=== PATIENT | female | born 1945 | race Caucasian/White ===

== ENCOUNTER 2017-09-03 20:47 | Emergency (ER) | payer MEDICARE, BC ==
[~2017-09-03] VITALS: Ht 167.6 cm; Wt 49.4 kg
[~2017-09-03 20:47] MED LIST: AMLODIPINE BES2.5 MG PO; ARIMIDEX1 MG PO; BENICAR20 MG PO; DICYCLOMINE HCL20 MG PO; PANTOPRAZOLE SO40 MG PO; SINGULAIR10 MG PO
[2017-09-03] MEDS ORDERED: ONDANSETRON HCL INJ 2 MG/ML VIAL IV STA (23:03)
[2017-09-03] MEDS ORDERED: SODIUM CHLORIDE 0.9% 1000ML 1,000 ML IV ONE (23:15)
[2017-09-03 23:51] LABS: BASOPHILS % 0.8 % (0.0-1.0); EOSINOPHILS % 0.5 % (0.0-6.0); HEMATOCRIT 35.8 % (34.2-44.1); HEMOGLOBIN 12.3 g/dL (12.0-16.0); LYMPHOCYTES # (AUTO) 0.9 (1.0-3.2); LYMPHOCYTES % 22.5 % (18.0-39.1); MEAN CORPUSCULAR HEMOGLOBIN 39.5 pg (28-32); MEAN CORPUSCULAR HGB CONC 34.4 g/dL (31-35); MEAN CORPUSCULAR VOLUME 115.1 fL (81-99); MONOCYTES # (AUTO) 0.3 (0.2-0.8); MONOCYTES % 7.4 % (4.4-11.3); NEUTROPHILS # (AUTO) 2.7 (2.1-6.9); NEUTROPHILS % 68.5 % (38.7-80.0); PLATELET COUNT 138 x10e3/uL (140-360); RED BLOOD COUNT 3.11 x10e6/uL (3.6-5.1); RED CELL DISTRIBUTION WIDTH 17.2 % (11.7-14.4)
[2017-09-04 00:09] LABS: ALANINE AMINOTRANSFERASE 15 IU/L (0-55); ALBUMIN 4.1 g/dL (3.5-5.0); ALBUMIN/GLOBULIN RATIO 0.9 (0.8-2.0); ALKALINE PHOSPHATASE 172 IU/L (40-150); ANION GAP 15.7 mmol/L (8-16); BLOOD UREA NITROGEN 17 mg/dL (7-26); BUN/CREATININE RATIO 20 (6-25); CARBON DIOXIDE 28 mmol/L (22-29); CHLORIDE 99 mmol/L (98-107); CREATININE, SERUM 0.86 mg/dL (0.57-1.11); EST GLOMERULAR FILTRATION RATE > 60 ML/MIN (60-); GLUCOSE 128 mg/dL (74-118); POTASSIUM 4.7 mmol/L (3.5-5.1); SODIUM 138 mmol/L (136-145)
[2017-09-04 00:16] LABS: CALCIUM 10.5 mg/dL (8.4-10.2)
--- NOTE | 2017-09-04 00:21 | Diagnostic Imaging Report ---
EXAM: CHEST 2 VIEWS, PA and lateral INDICATION: Dizzy, vomiting, headache COMPARISON: PA and lateral view of the chest June 23, 2016 FINDINGS: LINES/TUBES: Stable position of right internal jugular vein chest port LUNGS: Stable mass in the right upper lung. PLEURA: No effusions or pneumothorax. Biapical pleural calcifications. HEART AND MEDIASTINUM: Normal size and contour. BONES AND SOFT TISSUES: No acute findings. IMPRESSION: No significant interval change in appearance of right upper lung mass with extension to the hilum. Signed by: Dr. Liya Solis M.D. on 09/04/2017 12:17 AM
--- NOTE | 2017-09-04 00:24 | Diagnostic Imaging Report ---
Examination: CT BRAIN WITHOUT CONTRAST History:Dizziness. Headaches. Vomiting. History of breast cancer. Comparison studies:Head CT dated 01/02/2016. Technique: Axial images were obtained from the skull base to the vertex. Coronal and sagittal images reconstructed from the axial data. Intravenous contrast: None Findings: Scalp: No abnormalities. Bones: No fractures, blastic or lytic lesions. Brain sulci: Appropriate for age. Ventricles: Normal in size and configuration. No hydrocephalus. Extra-axial space: No abnormalities. Parenchyma: There are new areas of hypoattenuation at the tsang white interface of the left frontal and parietal lobes, right occipital lobe (cuneus gyrus), left centrum semiovale, left subinsular regions and bilateral cerebellar hemispheres, concerning for intracranial metastases. There is partial effacement of the fourth ventricle due to vasogenic edema of the bilateral cerebellar hemispheres. No hemorrhage, or acute or chronic cortical based vascular insults. Sellar/suprasellar region: No abnormalities. Craniocervical junction: Patent foramen magnum. No Chiari one malformation. Incidental findings: None. Impression: 1. No acute intracranial abnormalities, specifically, no hemorrhage. 2. Findings as described are concerning for supra- and infratentorial metastases, which is new when compared to prior head CT dated 01/02/2016. Signed by: Dr. Ashli Luna M.D. on 09/04/2017 12:21 AM
[2017-09-04 02:30] LABS: BILIRUBIN,URINE NEGATIVE (NEGATIVE); CLARITY,URINE CLEAR (CLEAR); COLOR,URINE YELLOW (YELLOW); KETONES,URINE 2+ (NEGATIVE); LEUKOCYTE ESTERASE ,URINE NEGATIVE (NEGATIVE); NITRITE,URINE NEGATIVE (NEGATIVE); PROTEIN,URINE DIPSTICK NEGATIVE (NEGATIVE); URINE UROBILINOGEN 0.2 mg/dL (0.2 - 1)
[2017-09-04] MEDS ORDERED: XELODA500 MG PO (02:41)
[2017-09-04 02:42] LABS: BACTERIA,URINE FEW /HPF; EPITHELIAL CELLS,URINE FEW /LPF; MUCUS,URINE MANY (RARE); RBC,URINE 0-5 /HPF (0-5); WBC,URINE (MAN) 0-5 /HPF (0-5)
[2017-09-04] MEDS ORDERED: DEXAMETHASONE SOD PHOS 10 MG/1 ML VIAL IV ONE (07:45)
[2017-09-04] MEDS ORDERED: SODIUM CHLORIDE 0.9% 50ML 50 ML ONE (08:12)
[2017-09-04] MEDS ORDERED: GADOBENATE DIMEGLUMINE 1 ML IV ONE (08:29)
[2017-09-04] MEDS ORDERED: LEVETIRACETAM 500MG/5ML VIAL 1,000 MG in SODIUM CHLORIDE 0.9% 100 ML 100 ML IV SCH (09:00)
--- NOTE | 2017-09-04 13:07 | Diagnostic Imaging Report ---
Exam: Brain MRI without with IV contrast History: Dizziness, vomiting, headache Comparison studies: Head CTs of 09/03/2017 and 10/03/2015. Brain MRI 08/19/2015. Technique: Precontrast sagittal axial T2 FS, axial DWI, T1 FLAIR, axial T2*GRE. Post contrast axial T2 FLAIR and axial coronal T1 FS. Intravenous contrast: 10 cc of MultiHance Findings: Scalp: No abnormal signal. No masses. Bone marrow: Normal in signal intensity. Brain sulci: Appropriate for age. Ventricles: Normal in size. No hydrocephalus. Extra axial spaces: No mass, no fluid collection. Parenchyma: There are innumerable scattered enhancing lesions throughout the bilateral supratentorial cerebral hemispheres and in the cerebellum. Most supratentorial lesions are located at the tsang-white junction. Most lesions are subcentimeter in size. The largest lesion in the right inferior cerebellum measures 3.1 x 3.2 x 3.4 cm (SI x AP x TV). Enhancing lesions in the left cerebellar hemisphere measure up to 1.7 cm. Collectively these lesions result in moderate vasogenic edema which results and moderate effacement of the fourth ventricle and fourth ventricular outflow tracts. Largest lesion in the supratentorial compartment measures 1.6 cm along the left posterior insula and is with vasogenic edema which extends along the left subinsular white matter and posterior limb of the internal capsule. There is moderate vasogenic edema related to enhancing lesions in the left centrum semiovale and dobson radiata without significant mass effect. No hemorrhage or acute ischemia. Suprasellar region: No abnormalities. Craniocervical junction: Patent foramen magnum. No Chiari one malformation. Vessels: Normal flow-voids in the arteries and sinuses. IMPRESSION: 1. Innumerable supratentorial and infratentorial enhancing metastatic lesions with surrounding vasogenic edema, new from the previous brain MRI of 08/19/2015. 2. Vasogenic edema related to metastases in the cerebellum result in moderate effacement of the fourth ventricle without hydrocephalus at this time. No supratentorial midline shift or subfalcine herniation. Findings were discussed with Dr. Painter at 11:23 AM on 09/04/2017. Signed by: Dr. Pillo Avalos M.D. on 09/04/2017 11:30 AM
== END 2017-09-04 11:30 | disposition short-term general hospital (02) ==
LOC: ER 20:47
DX: R42 Dizziness and giddiness (principal); R11.2 Nausea with vomiting, unspecified; C50.919 Malignant neoplasm of unspecified site of unspecified female breast; C79.31 Secondary malignant neoplasm of brain; I10 Essential (primary) hypertension; J44.9 Chronic obstructive pulmonary disease, unspecified
CPT/HCPCS: 36415; 70450; 70553; 71046; 80053; 81001; 85025; 93005; 99285; J1100; J2405; J7030